=== PATIENT | female | born 1975 | race Two or more races ===

== ENCOUNTER 2022-03-19 04:09 | Day surgery (SDC) | payer OTHER ==
[2022-03-15 09:11] VITALS: BMI 26.8
[~2022-03-19 04:09] MED LIST: LIDOCAINE HCL 1%, 10 MG/ML (20ML VIAL) INF ONE
[2022-03-19 10:31] VITALS: RESP 20
[2022-03-19] MEDS ORDERED: LIDOCAINE HCL 1%, 10 MG/ML (20ML VIAL) ONE ×2 (12:42→13:23)
[2022-03-19] MEDS ORDERED: PROPOFOL 20 ML ONE (13:03)
[2022-03-19] MEDS ORDERED: MIDAZOLAM HCL 2 MG/2 ML SINGLE DOSE VIAL ONE (13:03)
[2022-03-19] MEDS ORDERED: LIDOCAINE HCL 1%, 10 MG/ML (20ML VIAL) INF ONE ×2 (13:20)
[2022-03-19] MEDS ORDERED: DEXAMETHASONE SOD PHOSPHATE 4 MG/1 ML VIAL ONE (13:28)
[2022-03-19] MEDS ORDERED: ONDANSETRON 4 MG/2 ML VIAL ONE (13:28)
[2022-03-19] MEDS ORDERED: KETOROLAC TROMETHAMINE 30 MG/1 ML VIAL ONE (13:37)
[2022-03-19 16:02] VITALS: BP 116/70; PULSE 59; TEMP 97
== END 2022-03-19 15:50 | disposition home or self-care (01) ==
LOC: JASU-SURG 04:09
PROVIDERS: ATTEND Surgery
PROC: 0HBU0ZZ Excision of Left Breast, Open Approach (ICD-10-PCS; principal; 2022-03-19 12:00)
DX: D24.2 Benign neoplasm of left breast (principal)
CPT/HCPCS: 88307-TC